=== PATIENT | male | born 1935 | race Caucasian/White ===

== ENCOUNTER → 2018-03-20 | Outpatient (CLI) | payer OTHER ==
[~2018-03-20] MED LIST: AMLO-104 PO; ASPI-757 PO; ATOR10TA24 PO; CARV25TA78 PO; CHLOR25 PO; CLON0.1T14 PO; CLOP75TA PO; DOXA2TAB58 PO; METF-421 PO
== END ==
LOC: LAB 11:08
PROVIDERS: ATTEND Physician Assistant
DX: I12.9 Hypertensive chronic kidney disease with stage 1 through stage 4 chronic kidney disease, or unspecified chronic kidney disease (principal); N18.3 Chronic kidney disease, stage 3 (moderate)
CPT/HCPCS: 36415; 82040; 82247; 82310; 82374; 82435; 82565; 82947; 84075; 84132; 84155; 84295; 84450; 84460; 84520